=== PATIENT | male | born 1965 | race African-American/Black ===

== ENCOUNTER 2023-08-18 10:42 | Observation (INO) | payer OTHER ==
[2023-08-18] MEDS ORDERED: morphine SULFATE 4 MG/ML VIAL IVPUSH ONE ×2 (11:31→15:40)
[2023-08-18] MEDS ORDERED: morphine SULFATE 4 MG/ML VIAL ONE ×2 (12:11→15:42)
[2023-08-18 12:21] LABS: EPI CELLS 6 /uL (0-25.1); HYALINE CASTS 0 /uL (0-3.1); PH,URINE 5.5 (5.0-8.0); URINE APPEARANCE TURBID; URINE BACTERIA >9,000 /uL (0-1359); URINE BILIRUBIN NEGATIVE (NEGATIVE); URINE COLOR DK YELLOW; URINE GLUCOSE (UA) NEGATIVE (NEGATIVE); URINE KETONE NEGATIVE (NEGATIVE); URINE LEUK ESTERASE 2+ (NEGATIVE); URINE NITRITE POSITIVE (NEGATIVE); URINE PROTEIN 2+ (NEGATIVE); URINE RBC 43 /uL (0-23.9); URINE WBC 2068 /uL (0-25.8)
[2023-08-18 12:30] LABS: HEMATOCRIT 41.5 % (35.4-49); HEMOGLOBIN 13.7 GM/dL (11.7-16.9); MCH 29.8 pg (25.7-33.7); MEAN CELL VOLUME 90.4 fl (80-96); MEAN PLT VOLUME 9.8 fl (7.5-11.1); PLATELET COUNT 244 10^3/uL (134-434); RBC 4.59 M/mm3 (4.00-5.60); RDW 14.6 % (11.9-15.9)
[2023-08-18 12:37] LABS: INR 1.33 (0.83-1.09); PROTHROMBIN TIME (PATIENT) 15.4 SEC (9.7-13.0)
[2023-08-18 12:54] LABS: POTASSIUM 3.4 mmol/L (3.5-5.1)
[2023-08-18 12:58] LABS: ANISOCYTOSIS 0; BLOOD UREA NITROGEN 12.3 mg/dL (7-18); CALCIUM 9.2 mg/dL (8.5-10.1); MACROCYTOSIS 0
[2023-08-18 13:02] LABS: BILIRUBIN,TOTAL 0.5 mg/dL (0.2-1); TOT PROT 7.2 g/dl (6.4-8.2)
[2023-08-18] MEDS ORDERED: CEFTRIAXONE 1,000 MG in DEXTROSE 5%-WATER - 50 ML IVPB ONE (13:07)
[2023-08-18] MEDS ORDERED: CEFTRIAXONE 1 GM/50 ML BAG ONE (13:21)
[2023-08-18] MEDS ORDERED: AMPICILLIN NA/SULBACTAM NA 3 GM in SODIUM CHLORIDE 100 ML IVPB ONE (20:16)
[2023-08-18 21:23] VITALS: RESP 18
[2023-08-18] MEDS ORDERED: ACETAMINOPHEN 1000 MG/100 ML BAG IVPB ONE (22:10)
[2023-08-18] MEDS ORDERED: AMPICILLIN NA/SULBACTAM NA 3 GM VIAL ONE (22:44)
[2023-08-18] MEDS ORDERED: ACETAMINOPHEN INJECTION 100 ML IVPB ONE (22:45)
[2023-08-19 02:14] VITALS: BMI 28.3
[2023-08-19] MEDS ORDERED: ACETAMINOPHEN 1000 MG/100 ML BAG IVPB PRN ×2 (04:26→06:27)
[2023-08-19] MEDS ORDERED: POTASSIUM CHLORIDE TABS 20 MEQ TABLET.ER (FP) PO ONE (04:37)
[2023-08-19] MEDS: LACTATED RINGERS SOLUTION 1,000 ML/1,000 ML INFUS.BAG IV SCH ×2 (05:24→17:20)
[2023-08-19] MEDS: BACLOFEN 10 MG TABLET (FP) PO SCH ×3 (07:27→21:29)
[2023-08-19] MEDS ORDERED: BISACODYL 5 MG TABLET.DR (FP) PO ONE (08:10)
[2023-08-19] MEDS ORDERED: traMADol HCL 50 MG TABLET PO PRN (08:10)
[2023-08-19] MEDS: CLOPIDOGREL BISULFATE 75 MG TABLET (FP) PO SCH (09:51)
[2023-08-19] MEDS: PANTOPRAZOLE 40 MG TABLET PO SCH (09:51)
[2023-08-19] MEDS: ASPIRIN 81 MG CHEWABLE TABLETS PO SCH (09:51)
[2023-08-19] MEDS: ENOXAPARIN NA (PORCINE) 40 MG/0.4 ML DISP.SYRIN SQ SCH (09:52)
[2023-08-19] MEDS: DOXYCYCLINE INJECTION 100 MG in DEXTROSE 5%-WATER 100 ML IVPB SCH ×2 (09:53→21:27)
[2023-08-19 11:12] LABS: HEMATOCRIT 38.1 % (35.4-49); HEMOGLOBIN 13.1 GM/dL (11.7-16.9); MCHC 34.3 g/dl (32.0-35.9); MEAN CELL VOLUME 90.4 fl (80-96); MEAN PLT VOLUME 10.1 fl (7.5-11.1); PLATELET COUNT 245 10^3/uL (134-434); RBC 4.21 M/mm3 (4.00-5.60); RDW 14.6 % (11.9-15.9); WHITE BLOOD COUNT 20.7 K/mm3 (4.0-10.0)
[2023-08-19 11:15] LABS: POTASSIUM 3.7 mmol/L (3.5-5.1)
[2023-08-19 11:18] LABS: ALBUMIN 2.8 g/dl (3.4-5.0)
[2023-08-19 11:21] LABS: BLOOD UREA NITROGEN 10.8 mg/dL (7-18); CALCIUM 8.3 mg/dL (8.5-10.1)
[2023-08-19 11:23] LABS: MAGNESIUM 2.3 mg/dL (1.8-2.4)
[2023-08-19 11:24] LABS: BILIRUBIN,TOTAL 0.5 mg/dL (0.2-1)
[2023-08-19 11:25] LABS: CREATININE 1.1 mg/dL (0.55-1.3)
[2023-08-19] MEDS: SENNOSIDES 8.6MG TABLET (FP) PO SCH (21:28)
[2023-08-19] MEDS: MIRTAZAPINE 15 MG TABLET (FP) PO SCH (21:28)
[2023-08-19] MEDS: MELATONIN 1 MG TABLET PO SCH (21:28)
[2023-08-19] MEDS: ROSUVASTATIN CA 20 MG TABLET PO SCH (21:29)
[2023-08-20] MEDS: BACLOFEN 10 MG TABLET (FP) PO SCH ×3 (06:20→21:02)
[2023-08-20] MEDS: LACTATED RINGERS SOLUTION 1,000 ML/1,000 ML INFUS.BAG IV SCH (06:20)
[2023-08-20] MEDS: ASPIRIN 81 MG CHEWABLE TABLETS PO SCH (09:28)
[2023-08-20] MEDS: ENOXAPARIN NA (PORCINE) 40 MG/0.4 ML DISP.SYRIN SQ SCH (09:28)
[2023-08-20] MEDS: CLOPIDOGREL BISULFATE 75 MG TABLET (FP) PO SCH (09:28)
[2023-08-20] MEDS: PANTOPRAZOLE 40 MG TABLET PO SCH (09:28)
[2023-08-20] MEDS: DOXYCYCLINE INJECTION 100 MG in DEXTROSE 5%-WATER 100 ML IVPB SCH ×2 (09:29→21:01)
[2023-08-20 09:42] LABS: BASO % 1.1 % (0-2.0); EOS % 4.2 % (0-4.5); HEMATOCRIT 38.8 % (35.4-49); HEMOGLOBIN 12.9 GM/dL (11.7-16.9); LYMPH % 17.8 % (8-40); MCH 30.2 pg (25.7-33.7); MCHC 33.3 g/dl (32.0-35.9); MEAN CELL VOLUME 90.5 fl (80-96); MONO % 10.2 % (3.8-10.2); NEUT % 66.7 % (42.8-82.8); PLATELET COUNT 286 10^3/uL (134-434); RBC 4.28 M/mm3 (4.00-5.60); RDW 14.5 % (11.9-15.9)
[2023-08-20 11:45] LABS: POTASSIUM 4.1 mmol/L (3.5-5.1)
[2023-08-20 11:49] LABS: CALCIUM 9.2 mg/dL (8.5-10.1)
[2023-08-20 11:50] LABS: ALBUMIN 2.8 g/dl (3.4-5.0); BLOOD UREA NITROGEN 10.2 mg/dL (7-18); MAGNESIUM 2.2 mg/dL (1.8-2.4)
[2023-08-20 11:53] LABS: PHOSPHOROUS 3.2 mg/dL (2.5-4.9)
[2023-08-20 11:54] LABS: TOT PROT 6.7 g/dl (6.4-8.2)
[2023-08-20 11:55] LABS: BILIRUBIN,TOTAL 0.3 mg/dL (0.2-1); CREATININE 0.9 mg/dL (0.55-1.3)
[2023-08-20] MEDS: CEFTRIAXONE 1 GM in DEXTROSE 5%-WATER - 50 ML IVPB SCH (13:18)
[2023-08-20] MEDS: MELATONIN 1 MG TABLET PO SCH (21:01)
[2023-08-20] MEDS: ROSUVASTATIN CA 20 MG TABLET PO SCH (21:01)
[2023-08-20] MEDS: MIRTAZAPINE 15 MG TABLET (FP) PO SCH (21:01)
[2023-08-20] MEDS: SENNOSIDES 8.6MG TABLET (FP) PO SCH (21:02)
[2023-08-21] MEDS: BACLOFEN 10 MG TABLET (FP) PO SCH ×2 (05:42→13:39)
[2023-08-21 08:12] VITALS: PULSE 75
[2023-08-21] MEDS ORDERED: cefTRIAXone SODIUM 1 GM VIAL ONE ×2 (08:59→09:35)
[2023-08-21] MEDS: ASPIRIN 81 MG CHEWABLE TABLETS PO SCH (09:27)
[2023-08-21] MEDS: ENOXAPARIN NA (PORCINE) 40 MG/0.4 ML DISP.SYRIN SQ SCH (09:27)
[2023-08-21] MEDS: DOXYCYCLINE INJECTION 100 MG in DEXTROSE 5%-WATER 100 ML IVPB SCH (09:27)
[2023-08-21] MEDS: CLOPIDOGREL BISULFATE 75 MG TABLET (FP) PO SCH (09:27)
[2023-08-21] MEDS: PANTOPRAZOLE 40 MG TABLET PO SCH (09:27)
[2023-08-21] MEDS: CEFTRIAXONE 1 GM in DEXTROSE 5%-WATER - 50 ML IVPB SCH (09:57)
[2023-08-21 11:17] VITALS: TEMP 97.6
[2023-08-21 11:34] LABS: BASO % 0.6 % (0-2.0); EOS % 5.4 % (0-4.5); HEMATOCRIT 38.8 % (35.4-49); HEMOGLOBIN 12.8 GM/dL (11.7-16.9); LYMPH % 15.6 % (8-40); MCH 29.8 pg (25.7-33.7); MCHC 32.8 g/dl (32.0-35.9); MEAN CELL VOLUME 90.7 fl (80-96); MEAN PLT VOLUME 9.7 fl (7.5-11.1); MONO % 14.4 % (3.8-10.2); PLATELET COUNT 323 10^3/uL (134-434); RBC 4.28 M/mm3 (4.00-5.60); RDW 14.7 % (11.9-15.9); WHITE BLOOD COUNT 11.6 K/mm3 (4.0-10.0)
[2023-08-21 11:54] LABS: BLOOD UREA NITROGEN 10.3 mg/dL (7-18); CALCIUM 9.1 mg/dL (8.5-10.1); MAGNESIUM 2.2 mg/dL (1.8-2.4)
[2023-08-21 11:55] LABS: ALBUMIN 2.6 g/dl (3.4-5.0)
[2023-08-21 11:57] LABS: PHOSPHOROUS 3.3 mg/dL (2.5-4.9)
[2023-08-21 11:58] LABS: CREATININE 0.9 mg/dL (0.55-1.3)
[2023-08-21 11:59] LABS: BILIRUBIN,TOTAL 0.3 mg/dL (0.2-1); TOT PROT 6.6 g/dl (6.4-8.2)
[2023-08-21 13:20] VITALS: BP 118/78
== END 2023-08-21 14:17 | disposition home or self-care (01) ==
LOC: JER 10:42 → JERBED 13:21 → J6S 08-19 01:47
PROVIDERS: ADMIT Internal Medicine; ATTEND Internal Medicine
PROC: 3E033NZ Introduction of Analgesics, Hypnotics, Sedatives into Peripheral Vein, Percutaneous Approach (ICD-10-PCS; principal; 2023-08-18)
PROC: 3E023GC Introduction of Other Therapeutic Substance into Muscle, Percutaneous Approach (ICD-10-PCS; 2023-08-18)
PROC: 3E033GC Introduction of Other Therapeutic Substance into Peripheral Vein, Percutaneous Approach (ICD-10-PCS; 2023-08-18)
DX: N45.2 Orchitis (principal); N45.1 Epididymitis; A41.89 Other specified sepsis; K59.09 Other constipation; N28.1 Cyst of kidney, acquired; I10 Essential (primary) hypertension; E78.5 Hyperlipidemia, unspecified; I69.354 Hemiplegia and hemiparesis following cerebral infarction affecting left non-dominant side; E87.1 Hypo-osmolality and hyponatremia; N39.0 Urinary tract infection, site not specified; E87.6 Hypokalemia; Z29.89 Encounter for other specified prophylactic measures; N43.3 Hydrocele, unspecified; L53.8 Other specified erythematous conditions
CPT/HCPCS: 0241U-QW; 36415; 71045-TC-FY; 74177-TC; 76870-TC; 80053; 81003; 83605; 83735; 84100; 85025; 85027; 85610; 85730; 86780; 86850; 86900; 86901; 87040; 87086; 87186; 87491; 87591; 93005; 93010; 96365; 96366; 96367; 96372; 96375; 96376; 97116-GP; 97162-GP; 99285-25; G0378; J0475; Q9967